=== PATIENT | male | born 1990 | race Caucasian/White ===

== ENCOUNTER 2022-02-17 09:39 | Emergency (ER) | payer BC, SELFPAY ==
[2022-02-17 09:42] VITALS: BP 132/106; PULSE 129; RESP 16; TEMP 38.5; O2SAT 100; BMI 32.3
--- NOTE | 2022-02-17 10:04 | EX.ED.DYSGE1 ---
HPI History of Present Illness Chief Complaint: General Illness Narrative Narrative: 31-year-old male presenting with fever, chills, body aches, very mild nausea and crampy abdominal pain. He denies any diarrhea or constipation. 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 He did not have a fever last evening but had a temperature of 102 ?F or greater at the urgent care prior to coming here. He states that they palpated his abdomen and felt that he might have appendicitis. Patient states he had COVID-19 last year and did not feel the sick. He has been vaccinated for times. He is a very mild cough but does not feel short of breath and is not having chest pain. PFSH PFSH Medical History no medical history Home Medications ondansetron 4 mg disintegrating tablet 4 mg PO Q8H PRN nausea and vomiting #14 tabs 02/17/22 [Rx Last Taken Unknown] Allergy/AdvReac Type Severity Reaction Status Date / Time No Known Allergies Allergy Verified 02/17/22 09:46 Surgical History no surgical history Social History Smoking Status: Never smoker ROS ROS ED Constitutional Constitutional ED: Reports chills and fever(s) Eyes Eyes: Denies change in vision or diplopia ENT ENT ED: Denies rhinorrhea or sore throat Cardiovascular Cardiovascular: Reports racing heartbeat; Denies chest pain Respiratory/Chest Respiratory/Chest: Reports cough; Denies dyspnea or dyspnea on exertion Gastrointestinal Gastrointestinal: Reports abdominal pain and nausea; Denies diarrhea or vomiting Genitourinary Genitourinary ED: Denies dysuria or hematuria Musculoskeletal Musculoskeletal: Denies arthralgias or back pain Integumentary Denies abscess Neurologic Neurologic: Denies headache(s) or paresthesias Psychiatric Psychiatric: Denies anxiety or depression EXAM Physical Exam Const Vital Signs: 02/17/22 09:42 02/17/22 11:08 Temperature 101.3 F H 99.2 F H Temperature Source Temporal Oral Pulse Rate 129 H Respiratory Rate 16 Blood Pressure 132/106 H Blood Pressure Mean 114 Pulse Ox 100 Oxygen Delivery Method Room Air Positive well nourished General Appearance ED: Negative for pallor HEENT Reports moist mucous membranes Eyes PERRL and EOMs intact bilaterally General Eye ED: Negative for pale conjunctiva or scleral icterus Chest Wall inspection of chest normal and palpation of chest normal Resp normal respiratory effort and clear to auscultation bilaterally Cardio regular rhythm Rate: tachycardic GI GI Narrative: Generalized tenderness. Abdomen soft. No peritoneal signs. There is slightly more tenderness in the right lower quadrant and the left lower quadrant. Back/Spine no CVA tenderness Neuro oriented x3 and CN's II-XII intact bilaterally Sensorium / Orientation: alert Motor Exam: strength 5/5 throughout Psych mental status grossly normal Skin no rashes or lesions noted and no wounds General Skin Exam: Negative for jaundice or pallor MDM MDM MDM Narrative Medical decision making narrative: Patient presenting fever, chills, body aches from urgent care. He reports they told him he probably has appendicitis. He does some lower abdominal tenderness on the left than the right which does not appear to be consistent with appendicitis on examination. Abdomen has no peritoneal signs. It is not rigid. No CVA tenderness. Patient given Tylenol for his fever, and the patient was given IV fluids. CBC shows no leukocytosis. Hemoglobin hematocrit are stable. Patient noted to be lymphopenic. Renal function and electrolytes within normal limits. LFTs are normal. Once the patient's blood work was normal I did give the patient some Toradol. His heart rate came down to just over 100. His fever is now gone. Repeat examination is benign. I do suspect the patient likely has a viral syndrome. He tested positive for COVID today although he is only had symptoms since last evening. Patient will be given Zofran for home. He is counseled to alternate Tylenol and ibuprofen for fever and body aches. He is to drink plenty of fluids. He was given return precautions if his abdominal pain should worsen. I do not believe he needs a CT scan today. Impression: 1. Viral syndrome 2. Febrile illness 3. Abdominal pain 4. Tachycardia 5. Nausea Lab Data Attestation: I reviewed the patient's lab results. Labs: Laboratory Results - last 24 hr 02/17/22 02/17/22 10:10 10:10 WBC 8.1 RBC 4.93 Hgb 15.5 Hct 45.2 MCV 91.7 MCH 31.4 MCHC 34.3 RDW Std Deviation 44.7 H RDW Coeff of Popeye 13.2 Plt Count 261 MPV 10.7 Immature Gran % (Auto) 0.500 Neut % (Auto) 77.2 H Lymph % (Auto) 8.[address] [place] % (Auto) 11.1 H Eos % (Auto) 2.6 Baso % (Auto) 0.5 Absolute Neuts (auto) 6.3 Absolute Lymphs (auto) 0.66 L Nucleated RBC % 0 Sodium 138 Potassium 3.6 Chloride 105 Carbon Dioxide 29.0 Anion Gap 4 L BUN 9 Creatinine 1.05 Estim Creat Clear Calc 90.30 Est GFR (MDRD) Af Amer 104 Est GFR (MDRD) Non-Af 86 BUN/Creatinine Ratio 8.6 L Glucose 95 Calcium 9.3 Total Bilirubin 0.70 AST 23 ALT 41 Alkaline Phosphatase 116 Total Protein 8.0 Albumin 4.1 Globulin 3.9 Albumin/Globulin Ratio 1.1 Discharge Plan Triage Chief Complaint: General Illness Other Complaint: Abd Pain ED Provider: Ishan Aparicio Dx/Rx/DC Orders Instructions: ED Viral Syndrome (Adult) Prescriptions: New ondansetron 4 mg tablet,disintegrating 4 mg PO Q8H PRN (Reason: nausea and vomiting) Qty: 14 0RF Primary Care Provider: Care Physician,No Primary Referrals: Fady Porter MD [STAFF PHYSICIAN] - 3-5 Days NOT,DEFINED [NON-STAFF] - Disposition Disposition: Home, Self Care Discharge Date/Time: 02/17/22 11:36
[2022-02-17] MEDS: Acetaminophen 500 MG Tablet 1000 MG PO (10:12)
[2022-02-17] MEDS: 0.9% Normal Saline 1,000 ML 1000 ML IV (10:12)
[2022-02-17] MEDS: Ondansetron 4 MG/2 ML Vial IV (10:12)
[2022-02-17 10:19] LABS: Absolute Lymphocyte Count 0.66 X10^3/uL (0.83-4.51); Absolute Neutrophil Count 6.3 X10^3/uL (2.0-7.7); Basophil# 0.04 X10^3/uL; Basophil% 0.5 % (0-1); Eosinophil# 0.21 X10^3/uL; Eosinophils% 2.6 % (0-5); Hematocrit 45.2 % (40-54); Hemoglobin 15.5 g/dL (13.0-16.5); Lymphocyte # 0.66 X10^3/ul (0.83-4.51); Lymphocyte % 8.1 % (19-41); Mean Corp Hgb Conc 34.3 g/dL (32-36); Mean Corpuscular Hgb 31.4 pg (27.0-32.0); Mean Corpuscular Volume 91.7 fL (80-94); Mean Platelet Vol. 10.7 fl (6.2-12.0); Monocyte% 11.1 % (0-10); NRBC Flagged by Analyzer 0 % (0-5); Neutrophil # 6.28 X10^3/uL (2.7-7.7); Neutrophil % 77.2 % (47-70); Platelet Count 261 K/mm3 (150-450); RBC Distribution Width CV 13.2 % (11.6-14.6); RBC Distribution Width SD 44.7 fl (35.1-43.9); Red Blood Count 4.93 M/mm3 (4.6-6.2); White Blood Count 8.1 K/mm3 (4.4-11.0)
[2022-02-17] MEDS: Ketorolac 15 MG/ML Vial IV (10:29)
[2022-02-17 10:33] LABS: ALB/GLOB Ratio 1.1 RATIO (0.9-2.4); AST(SGOT) 23 U/L (15-37); Alanine Aminotransfer ALT/SGPT 41 U/L (16-61); Albumin, Serum 4.1 g/dL (3.2-5.0); Alkaline Phosphatase 116 U/L (45-117); Anion Gap 4 (5-15); BUN 9 mg/dL (7-18); BUN/Creat Ratio 8.6 RATIO (10-20); Calcium,Total 9.3 mg/dL (8.5-10.1); Chloride 105 mmol/L (98-107); Creatinine, Serum 1.05 mg/dL (0.70-1.30); EST Glomerular Filtration Rate 86 mL/min (>60); Est Glom Filt Rate - Afr Amer 104 mL/min (>60); Globulin 3.9 g/dL (2.2-4.2); Glucose 95 mg/dL (74-106); Potassium 3.6 mmol/L (3.5-5.1); Sodium Level 138 mmol/L (136-145)
[2022-02-17 11:08] VITALS: TEMP 37.3
== END 2022-02-17 11:36 | disposition home or self-care (01) ==
PROVIDERS: Emergency Provider Student in an Organized Health Care Education/Training Program; Visit Provider Student in an Organized Health Care Education/Training Program
DX: B34.9 Viral infection, unspecified (principal); R50.9 Fever, unspecified; R10.9 Unspecified abdominal pain; R11.0 Nausea; R00.0 Tachycardia, unspecified; Z86.16 Personal history of COVID-19; R05.9 Cough, unspecified
CPT/HCPCS: 80053; 85025; 87811; 96361; 96374; 96375; 99284; J2405